=== PATIENT | female | born 1940 | race Caucasian/White ===

== ENCOUNTER 2016-10-05 15:37 | Inpatient (IN) | payer MEDICARE ==
[~2016-10-05] VITALS: Ht 162.6 cm; Wt 72.6 kg
[2016-10-05 16:35] LABS: HEMOGLOBIN 12.9 gm/dl (12.3-15.3); RED BLOOD COUNT 4.28 M/UL (4.00-5.10)
[2016-10-05 16:59] LABS: BUN/CREATININE RATIO 29 (0-10)
[2016-10-05] MEDS ORDERED: ASPIR 8181 MG PO (20:08)
[2016-10-05] MEDS ORDERED: COLACE 100MG C100 MG PO (20:09)
[2016-10-05] MEDS ORDERED: SYNTHROID75 MCG PO (20:09)
[2016-10-05] MEDS ORDERED: DIABETA 5 MG TAB5 MG PO (20:09)
[2016-10-05] MEDS ORDERED: XYZAL5 MG PO (20:10)
[2016-10-05] MEDS ORDERED: METFORMIN HCL750 MG PO (20:10)
[2016-10-05] MEDS ORDERED: OMEPRAZOLE20 M1 PO (20:10)
[2016-10-05] MEDS ORDERED: QUETIAPINE FUMA25 MG PO (20:11)
[2016-10-05] MEDS ORDERED: VERAPAMIL ER240 MG PO (20:11)
[2016-10-05] MEDS ORDERED: MIRALAX17 GM PO (20:11)
[2016-10-05] MEDS ORDERED: VERAPAMIL ER120 M1 PO (20:12)
[2016-10-05] MEDS ORDERED: COZAAR100 MG PO (20:12)
[2016-10-05] MEDS ORDERED: NOVOLIN 70100 UNIT/1 SQ (23:57)
[2016-10-06 05:25] LABS: HEMOGLOBIN 12.3 gm/dl (12.3-15.3); RED BLOOD COUNT 4.14 M/UL (4.00-5.10)
[2016-10-06 05:32] LABS: WHITE BLOOD COUNT 7.4 K/UL (4.5-11.0)
[2016-10-06 05:41] LABS: BUN/CREATININE RATIO 25 (0-10)
[2016-10-07 05:14] LABS: HEMOGLOBIN 12.6 gm/dl (12.3-15.3); RED BLOOD COUNT 4.19 M/UL (4.00-5.10); WHITE BLOOD COUNT 8.9 K/UL (4.5-11.0)
[2016-10-07 05:30] LABS: BUN/CREATININE RATIO 19 (0-10)
[2016-10-08 05:16] LABS: BUN/CREATININE RATIO 18 (0-10)
[2016-10-09 05:18] LABS: BUN/CREATININE RATIO 20 (0-10)
[2016-10-09] MEDS ORDERED: CLINDAMYCIN HC300 MG PO (15:23)
[2016-10-09] MEDS ORDERED: BACTROBAN CREAM15 GM TOP (15:25)
== END 2016-10-09 16:44 | disposition home or self-care (01) | DRG 603 ==
LOC: ER1 15:37 → MED SURG 4 18:55 → ZEROF 18:55 → MED SURG 4 20:04
PROVIDERS: Emergency Medicine; Physician Assistant Medical; ADMIT Hospitalist
DX: L03.032 Cellulitis of left toe (principal); S92.515A Nondisplaced fracture of proximal phalanx of left lesser toe(s), initial encounter for closed fracture; W22.09XA Striking against other stationary object, initial encounter; Y92.019 Unspecified place in single-family (private) house as the place of occurrence of the external cause; E11.9 Type 2 diabetes mellitus without complications; I10 Essential (primary) hypertension; M79.675 Pain in left toe(s); Z90.710 Acquired absence of both cervix and uterus; E89.0 Postprocedural hypothyroidism; Z79.82 Long term (current) use of aspirin; Z79.899 Other long term (current) drug therapy; Z79.4 Long term (current) use of insulin
CPT/HCPCS: 36415; 73630; 80048; 80053; 80202; 82962; 83036; 83735; 84132; 84550; 85025; 86140; 87040; 93926; 93971; 96374; 96375; 99285; J1815; J3370; J7050; J7070

== ENCOUNTER 2016-10-25 23:38 | Inpatient (IN) | payer MEDICARE ==
[~2016-10-25] VITALS: Ht 162.6 cm; Wt 72.6 kg
[~2016-10-25 23:38] MED LIST: ASPIR 8181 MG PO; BACTROBAN CREAM15 GM TOP; CLINDAMYCIN HC300 MG PO; COLACE 100MG C100 MG PO; COZAAR100 MG PO; DIABETA 5 MG TAB5 MG PO; METFORMIN HCL750 MG PO; MIRALAX17 GM PO; NOVOLIN 70100 UNIT/1 SQ; OMEPRAZOLE20 M1 PO; QUETIAPINE FUMA25 MG PO; SYNTHROID75 MCG PO; VERAPAMIL ER120 M1 PO; VERAPAMIL ER240 MG PO; XYZAL5 MG PO
[2016-10-26 01:24] LABS: RED BLOOD COUNT 4.62 M/UL (4.00-5.10); WHITE BLOOD COUNT 11.7 K/UL (4.5-11.0)
[2016-10-26 01:53] LABS: BUN/CREATININE RATIO 29 (0-10)
[2016-10-27 04:24] LABS: HEMOGLOBIN 15.3 gm/dl (12.3-15.3); RED BLOOD COUNT 4.99 M/UL (4.00-5.10); WHITE BLOOD COUNT 14.5 K/UL (4.5-11.0)
[2016-10-27 04:49] LABS: BUN/CREATININE RATIO 20 (0-10)
[2016-10-27] MEDS ORDERED: LOPRESSOR50 MG PO (12:13)
[2016-10-27] MEDS ORDERED: BRILINTA90 MG PO (12:17)
[2016-10-27] MEDS ORDERED: LIPITOR TAB 2020 MG PO (12:19)
[2016-10-27] MEDS ORDERED: NITROSTAT0.4 MG SL (12:21)
== END 2016-10-27 13:25 | disposition home or self-care (01) | DRG 247 ==
LOC: ER1 23:38 → ZEROF 10-26 10:05 → PROG CARE 10-26 14:14
PROVIDERS: Emergency Medicine; ADMIT Internal Medicine
PROC: B2111ZZ Fluoroscopy of Multiple Coronary Arteries using Low Osmolar Contrast (ICD-10-PCS; principal; 2016-10-26)
PROC: 027034Z Dilation of Coronary Artery, One Artery with Drug-eluting Intraluminal Device, Percutaneous Approach (ICD-10-PCS; principal; 2016-10-26)
DX: I21.4 Non-ST elevation (NSTEMI) myocardial infarction (principal); E11.65 Type 2 diabetes mellitus with hyperglycemia; S92.402D Displaced unspecified fracture of left great toe, subsequent encounter for fracture with routine healing; E03.9 Hypothyroidism, unspecified; K21.9 Gastro-esophageal reflux disease without esophagitis; I10 Essential (primary) hypertension; E78.5 Hyperlipidemia, unspecified; Z82.49 Family history of ischemic heart disease and other diseases of the circulatory system; Z72.3 Lack of physical exercise; E66.9 Obesity, unspecified; Z82.3 Family history of stroke; Z79.84 Long term (current) use of oral hypoglycemic drugs; Z79.4 Long term (current) use of insulin; Z79.899 Other long term (current) drug therapy; Z79.82 Long term (current) use of aspirin
CPT/HCPCS: 36415; 71010; 80048; 80053; 80061; 82550; 82553; 82962; 83735; 83874; 83880; 84484; 85025; 85347; 93005; 96372; 96374; 96375; 99285; C1725; C1769; C1874; C1887; C9600; J0583; J1644; J1650; J1815; J2250; J3010; J7040; Q9963

== ENCOUNTER → 2020-09-21 | Outpatient (CLI) | payer MEDICARE, OTHER ==
[~2020-09-21] MED LIST changes: +AMLODIPINE BESYL5 MG PO; +ARICEPT10 MG PO; +BENADRYL 25MG C25 MG PO; +BRILINTA90 MG PO; +CETIRIZINE HCL10 MG PO; +DIFLUCAN150 MG PO; +GAS RELIEF125 MG PO; +GLUCOPHAGE XR750 MG PO; +HYDROXYZINE HCL25 MG PO; +KENALOG CREAM 015 GM TOP; +LANTUS INS100 UTS/M1 SC; +LANTUS100 UNIT/1 SC; +LIPITOR40 MG PO; +LOPRESSOR50 MG PO; +MACROBID 100 M100 MG PO; +NITROSTAT0.4 MG SL; +NORVASC10 MG PO; +PLAVIX 75 MG TA75 MG PO; +PROTONIX40 MG PO; +TYLENOL 325MG325 MG PO; +VITAMIN D250000 UNIT PO; +ZESTRIL40 MG PO; +[UNRECOGNIZED DRUG - REMARK] PO
[2020-09-21 12:38] LABS: BUN/CREATININE RATIO 34 (0-10)
== END ==
LOC: CT 09-08 10:00
PROVIDERS: Ophthalmology
DX: I65.23 Occlusion and stenosis of bilateral carotid arteries (principal); R51.9 Headache, unspecified; H54.7 Unspecified visual loss; I65.22 Occlusion and stenosis of left carotid artery
CPT/HCPCS: 36415; 70470; 70498; 80048; Q9967

== ENCOUNTER → 2020-09-27 | Outpatient (CLI) | payer MEDICARE, OTHER | LOC: ECHO 11:00 | DX: I70.90 Unspecified atherosclerosis (principal); I11.9 Hypertensive heart disease without heart failure | CPT/HCPCS: ECHO; 93306 ==